=== PATIENT | male | born 1995 | race African-American/Black ===

== ENCOUNTER 2021-06-06 11:37 | Emergency (ER) | payer BC ==
[2021-06-06] MEDS ORDERED: DOXYCYCLINE HY100 M2 PO (12:57)
[2021-06-08 00:09] LABS: CHLAMYDIA TRACHOMATIS, NAA Positive (Negative); NEISSERIA GONORRHOEAE, NAA Negative (Negative)
== END 2021-06-06 13:00 | disposition home or self-care (01) ==
LOC: ER1 11:37
PROVIDERS: Emergency Medicine
DX: R30.0 Dysuria (principal); Z21 Asymptomatic human immunodeficiency virus [HIV] infection status; F17.210 Nicotine dependence, cigarettes, uncomplicated; Z86.19 Personal history of other infectious and parasitic diseases
CPT/HCPCS: 81001; 87086; 99283